=== PATIENT | male | born 1965 | race Caucasian/White ===

== ENCOUNTER 2019-02-08 09:40 | Emergency (ER) | payer MEDICAID ==
[~2019-02-08] VITALS: Ht 167.6 cm; Wt 81.6 kg
[2019-02-08 09:49] VITALS: BP_SYST 123
[2019-02-08] MEDS ORDERED: KETOROLAC TROMETHAMINE 60 MG/2 ML VIAL IM ONE (10:45)
[2019-02-08 10:55] VITALS: BP_SYST 123
== END 2019-02-08 10:55 | disposition home or self-care (01) ==
LOC: SED 09:40
DX: S90.32XA Contusion of left foot, initial encounter (principal); S90.122A Contusion of left lesser toe(s) without damage to nail, initial encounter; J44.9 Chronic obstructive pulmonary disease, unspecified; I10 Essential (primary) hypertension; W22.8XXA Striking against or struck by other objects, initial encounter; Y93.01 Activity, walking, marching and hiking; Y92.009 Unspecified place in unspecified non-institutional (private) residence as the place of occurrence of the external cause; Y99.8 Other external cause status
CPT/HCPCS: 99283

== ENCOUNTER 2019-07-15 10:06 | Emergency (ER) | payer MEDICAID ==
[~2019-07-15] VITALS: Ht 170.2 cm; Wt 83.9 kg
[2019-07-15 10:06] VITALS: BP_SYST 139
[2019-07-15] MEDS ORDERED: KETOROLAC TROMETHAMINE 60 MG/2 ML VIAL IM ONE (11:30)
[2019-07-15 11:35] LABS: BASOPHILS # (AUTO) 0.1 K/uL (0.0-0.2); BASOPHILS % (AUTO) 0.8 % (0.0-2.0); EOSINOPHILS % (AUTO) 0.5 % (0.0-4.0); HEMATOCRIT 45.5 % (36-54); HEMOGLOBIN 16.1 g/dL (14.0-18.0); LYMPHOCYTES # (AUTO) 1.7 K/uL (1.0-5.5); LYMPHOCYTES % (AUTO) 20.7 % (20.5-51.5); MEAN CORPUSCULAR HEMOGLOBIN 35 pg (27-31); MEAN CORPUSCULAR HGB CONC 35 % (32-36); MEAN CORPUSCULAR VOLUME 100 fL (79.0-98.0); MONOCYTES # (AUTO) 0.8 K/uL (0.0-1.0); MONOCYTES % (AUTO) 9.4 % (1.7-9.3); NEUTROPHILS # (AUTO) 5.5 K/uL (1.8-7.7); NEUTROPHILS % (AUTO) 68.6 % (40.0-70.0); PLATELET COUNT (AUTO) 260 K/uL (130-430); RED BLOOD CELL COUNT(AUTO) 4.54 MIL/uL (4.2-6.2); RED CELL DISTRIBUTION WIDTH 12.7 % (9.0-15.0)
[2019-07-15 11:36] LABS: BILIRUBIN,URINE NEGATIVE (NEGATIVE); CLARITY/URINE CLEAR (CLEAR); COLOR,URINE YELLOW (YELLOW); GLUCOSE,URINE NEGATIVE (NEGATIVE); KETONES,URINE TRACE (NEGATIVE); LEUKOCYTE ESTERASE ,URINE NEGATIVE (NEGATIVE); NITRITE, URINE NEGATIVE (NEGATIVE); PROTEIN URINE NEGATIVE (NEGATIVE); UROBILINOGEN,URINE 0.2 (0.2-1.0)
[2019-07-15 11:38] LABS: BLOOD, URINE TRACE (NEGATIVE)
[2019-07-15 11:48] LABS: CALCIUM 8.9 mg/dL (8.4-11.0); CREATININE 0.83 mg/dL (0.55-1.30); POTASSIUM 4.1 mmol/L (3.5-5.1)
[2019-07-15 11:53] LABS: ALBUMIN 3.8 g/dL (3.4-4.8)
[2019-07-15 12:29] LABS: BACTERIA,URINE FEW /HPF (None Seen); MUCUS,URINE None Seen /LPF (None Seen); RBC,URINE 0-3 /HPF (0-3); WBC,URINE 0-3 /HPF (0-3)
[2019-07-15 13:05] VITALS: BP_SYST 130
== END 2019-07-15 13:05 | disposition home or self-care (01) ==
LOC: SED 10:06
DX: R10.11 Right upper quadrant pain (principal); R10.31 Right lower quadrant pain; J44.9 Chronic obstructive pulmonary disease, unspecified; I10 Essential (primary) hypertension
CPT/HCPCS: 36415; 74176; 80053; 81000; 83690; 85025; 96372; 99284; J1885; 99285

== ENCOUNTER 2020-05-27 00:35 | Emergency (ER) | payer MEDICAID ==
[~2020-05-27] VITALS: Ht 162.6 cm; Wt 79.4 kg
[2020-05-27 01:00] VITALS: BP_SYST 116
[2020-05-27] MEDS ORDERED: DIPH-TET-PERTUS Vaccine 0.5 ML VIAL (ADACEL) I.M. ONE ×2 (03:15)
[2020-05-27 04:00] VITALS: BP_SYST 116
== END 2020-05-27 04:00 | disposition home or self-care (01) ==
LOC: SED 00:35
DX: S61.214A Laceration without foreign body of right ring finger without damage to nail, initial encounter (principal); J44.9 Chronic obstructive pulmonary disease, unspecified; K21.9 Gastro-esophageal reflux disease without esophagitis; I10 Essential (primary) hypertension; W26.8XXA Contact with other sharp object(s), not elsewhere classified, initial encounter; Y93.89 Activity, other specified; Y92.89 Other specified places as the place of occurrence of the external cause; Y99.8 Other external cause status
CPT/HCPCS: 90715; 99283

== ENCOUNTER 2020-12-17 01:50 | Emergency (ER) | payer MEDICAID ==
[~2020-12-17] VITALS: Ht 162.6 cm; Wt 78.0 kg
[2020-12-17 01:51] VITALS: BP_SYST 128
[2020-12-17 02:39] LABS: BASOPHILS # (AUTO) 0.1 K/uL (0.0-0.2); BASOPHILS % (AUTO) 0.7 % (0.0-2.0); EOSINOPHILS # (AUTO) 0.1 K/uL (0.0-0.4); EOSINOPHILS % (AUTO) 1.4 % (0.0-4.0); HEMATOCRIT 44.7 % (36-54); HEMOGLOBIN 15.7 g/dL (14.0-18.0); LYMPHOCYTES # (AUTO) 2.3 K/uL (1.0-5.5); LYMPHOCYTES % (AUTO) 25.8 % (20.5-51.5); MEAN CORPUSCULAR HEMOGLOBIN 34 pg (27-31); MEAN CORPUSCULAR HGB CONC 35 % (32-36); MEAN CORPUSCULAR VOLUME 97 fL (79.0-98.0); MONOCYTES % (AUTO) 10.5 % (1.7-9.3); NEUTROPHILS # (AUTO) 5.6 K/uL (1.8-7.7); NEUTROPHILS % (AUTO) 61.6 % (40.0-70.0); PLATELET COUNT (AUTO) 265 K/uL (130-430); RED BLOOD CELL COUNT(AUTO) 4.64 MIL/uL (4.2-6.2); RED CELL DISTRIBUTION WIDTH 12.6 % (9.0-15.0)
[2020-12-17 02:55] LABS: CALCIUM 8.6 mg/dL (8.4-11.0); CREATININE 0.97 mg/dL (0.55-1.30); POTASSIUM 4.1 mmol/L (3.5-5.1)
[2020-12-17 03:09] LABS: ALBUMIN 3.9 g/dL (3.4-4.8); THYROID STIMULATING HORMONE 2.34 uIu/mL (0.36-3.74); TOTAL BILIRUBIN 0.3 mg/dL (0.0-1.0)
[2020-12-17] MEDS ORDERED: NACL 0.9% 1,000 ML IV ONE (03:45)
[2020-12-17] MEDS ORDERED: KETOROLAC TROMETHAMINE 30 MG VIAL IVP ONE (03:45)
[2020-12-17 04:35] VITALS: BP_SYST 128
== END 2020-12-17 04:35 | disposition home or self-care (01) ==
LOC: SED 01:50
DX: B34.9 Viral infection, unspecified (principal); K21.9 Gastro-esophageal reflux disease without esophagitis; J44.9 Chronic obstructive pulmonary disease, unspecified; I10 Essential (primary) hypertension; Z20.822 Contact with and (suspected) exposure to COVID-19
CPT/HCPCS: 36415; 80053; 84443; 85025; 87426; 96361; 96374; 99283; J7030

== ENCOUNTER 2021-04-28 01:27 | Emergency (ER) | payer MEDICAID ==
[~2021-04-28] VITALS: Ht 167.6 cm; Wt 83.0 kg
[2021-04-28 01:35] VITALS: BP_SYST 146
--- NOTE | 2021-04-28 01:35 | NUR ---
PT TO BED 3 FOR EVALUATION. REPORT GIVEN TO MAURO CARVALHO WHO WILL ASSUME CARE.
--- NOTE | 2021-04-28 01:49 | NUR ---
DR. DENISE AT BEDSIDE FOR PATIENT EVALUATION.
--- NOTE | 2021-04-28 01:50 | NUR ---
PATIENT AAOX4 AND AMBULATORY C/O BILATERAL LEG PAIN. PATIENT STATED HE WAS WORKING OUT AND HIS RIGHT LEG GAVE OUT AND DROPPED APPROXIMATELY 130LBS TO THE LEFT LEG. VISIBALE DISCOLORATION TO THE LEFT HEAL AND ANKLE. CURRENTLY STATING 10/10 ON THE PAIN SCALE.
--- NOTE | 2021-04-28 02:17 | NUR ---
PORTABLE XRAY DONE AT BEDSIDE.
[2021-04-28] MEDS ORDERED: HYDR-3917 PO (02:35)
[2021-04-28] MEDS ORDERED: IBUP-1969 PO (02:35)
[2021-04-28] MEDS ORDERED: HYDROcodone/ACETAMIN 5-325 MG TAB (NORCO/ VICODIN) PO ONE (02:45)
[2021-04-28] MEDS ORDERED: IBUPROFEN 600 MG TABLET PO ONE (02:45)
--- NOTE | 2021-04-28 02:45 | NUR ---
SPLINT APPLIED TO LEFT LEG POSTERIORLY. MD AT BEDSIDE. PULSES WNL. PT TOLERATED WELL.
[2021-04-28] MEDS ORDERED: HYDROcodone/ACETAMIN 5-325 MG TAB (NORCO/ VICODIN) ONE (02:58)
[2021-04-28 03:07] VITALS: BP_SYST 146
--- NOTE | 2021-04-28 03:08 | NUR ---
Patient given written and verbal discharge instructions and verbalizes understanding. DR.D'AGOSTINO UGO TAYLOR discussed with patient the results and treatment provided. Patient in stable condition. ID arm band removed. Rx of IBUPROFEN,NORCO given. Patient educated on pain management and to follow up with PMD. Pain Scale 0/10 Opportunity for questions provided and answered. Medication side effect fact sheet provided.
== END 2021-04-28 03:08 | disposition home or self-care (01) ==
LOC: SED 01:27
DX: S86.812A Strain of other muscle(s) and tendon(s) at lower leg level, left leg, initial encounter (principal); I10 Essential (primary) hypertension; K21.9 Gastro-esophageal reflux disease without esophagitis; J44.9 Chronic obstructive pulmonary disease, unspecified; Z79.899 Other long term (current) drug therapy; X50.9XXA Other and unspecified overexertion or strenuous movements or postures, initial encounter; Y93.89 Activity, other specified; Y92.89 Other specified places as the place of occurrence of the external cause; Y99.8 Other external cause status
CPT/HCPCS: 73590-TC; 99283

== ENCOUNTER 2021-08-07 14:07 | Emergency (ER) | payer MEDICAID, SELFPAY ==
[~2021-08-07] VITALS: Ht 167.6 cm; Wt 81.6 kg
[~2021-08-07 14:07] MED LIST: HYDR-3917 PO; IBUP-1969 PO
[2021-08-07] MEDS ORDERED: LOPE2CAP PO (15:57)
[2021-08-07] MEDS ORDERED: ONDA4TAB5 PO (15:57)
== END 2021-08-07 18:09 | disposition home or self-care (01) ==
LOC: SED 14:07
DX: J10.1 Influenza due to other identified influenza virus with other respiratory manifestations (principal); R11.2 Nausea with vomiting, unspecified; R19.7 Diarrhea, unspecified; I10 Essential (primary) hypertension; K21.9 Gastro-esophageal reflux disease without esophagitis; J44.9 Chronic obstructive pulmonary disease, unspecified; Z79.899 Other long term (current) drug therapy; Z20.822 Contact with and (suspected) exposure to COVID-19
CPT/HCPCS: 36415; 86710; 99283

== ENCOUNTER 2023-02-01 13:06 | Emergency (ER) | payer MEDICAID ==
[~2023-02-01] VITALS: Ht 167.6 cm; Wt 90.7 kg
[~2023-02-01 13:06] MED LIST changes: +LOPE2CAP PO; +ONDA4TAB5 PO
[2023-02-01 13:37] LABS: BASOPHILS # (AUTO) 0.1 K/uL (0.0-0.2); BASOPHILS % (AUTO) 0.6 % (0.0-2.0); EOSINOPHILS # (AUTO) 0.1 K/uL (0.0-0.4); EOSINOPHILS % (AUTO) 0.9 % (0.0-4.0); HEMATOCRIT 44.9 % (36-54); HEMOGLOBIN 15.4 g/dL (14.0-18.0); LYMPHOCYTES # (AUTO) 1.9 K/uL (1.0-5.5); LYMPHOCYTES % (AUTO) 23.1 % (20.5-51.5); MEAN CORPUSCULAR HEMOGLOBIN 33 pg (27-31); MEAN CORPUSCULAR HGB CONC 34 % (32-36); MEAN CORPUSCULAR VOLUME 96 fL (79.0-98.0); MONOCYTES % (AUTO) 12.7 % (1.7-9.3); NEUTROPHILS # (AUTO) 5.1 K/uL (1.8-7.7); NEUTROPHILS % (AUTO) 62.7 % (40.0-70.0); PLATELET COUNT (AUTO) 217 K/uL (130-430); RED BLOOD CELL COUNT(AUTO) 4.66 MIL/uL (4.2-6.2); RED CELL DISTRIBUTION WIDTH 13.2 % (9.0-15.0); WHITE BLOOD COUNT (AUTO) 8.1 K/uL (4.8-10.8)
[2023-02-01 13:52] LABS: ANION GAP 13 (5-15); CALCIUM 8.7 mg/dL (8.4-11.0); CHLORIDE 102 mmol/L (98-107); CREATININE 0.79 mg/dL (0.55-1.30); GFR AFRICAN AMERICAN 129 mL/min (>90); GLUCOSE 94 mg/dL (70-99); UREA NITROGEN, BLOOD 23 mg/dL (8-21)
--- NOTE | 2023-02-01 13:55 | NUR ---
PT RECEIVED, CARE ASSUMED. PT PRESENTS SELF TO ER WITH C/O SOB. CONNECTED TO TELE MONITOR: SR 80. RESP EVEN AND UNLABORED. DR PANG AT BED SIDE
[2023-02-01 13:56] VITALS: BP_SYST 152
[2023-02-01 13:59] LABS: ALANINE AMINOTRANSFERASE 63 U/L (12-78); ALBUMIN 3.7 g/dL (3.4-4.8); ASPARTATE AMINOTRANSFERASE 25 U/L (10-37); TOTAL BILIRUBIN 0.6 mg/dL (0.0-1.0)
[2023-02-01] MEDS ORDERED: PRED20TA PO (15:12)
[2023-02-01 15:29] VITALS: BP_SYST 129
--- NOTE | 2023-02-01 15:31 | NUR ---
Patient given written and verbal discharge instructions and verbalizes understanding. ER MD discussed with patient the results and treatment provided. Patient in stable condition. ID arm band removed. Patient educated on pain management and to follow up with PMD. Pain Scale []. Opportunity for questions provided and answered. Medication side effect fact sheet provided.
== END 2023-02-01 15:31 | disposition home or self-care (01) ==
LOC: SED 13:06
DX: J44.1 Chronic obstructive pulmonary disease with (acute) exacerbation (principal); K21.9 Gastro-esophageal reflux disease without esophagitis; I10 Essential (primary) hypertension; R06.00 Dyspnea, unspecified; Z79.899 Other long term (current) drug therapy; Z20.822 Contact with and (suspected) exposure to COVID-19
CPT/HCPCS: 36415; 71045; 80053; 83605; 83880; 84484; 85025; 85379; 93005; 99285

== ENCOUNTER 2023-11-26 14:28 | Emergency (ER) | payer MEDICAID ==
[~2023-11-26] VITALS: Ht 167.6 cm; Wt 85.7 kg
[~2023-11-26 14:28] MED LIST changes: +PRED20TA PO
[2023-11-26 14:56] VITALS: BP_SYST 163; PULSE 68; RESP 16; TEMP 98; O2SAT 96
[2023-11-26] MEDS ORDERED: NAPR-1172 PO (17:21)
[2023-11-26 17:28] VITALS: BP_SYST 142; PULSE 72; RESP 18; TEMP 98; O2SAT 96
== END 2023-11-26 17:28 | disposition home or self-care (01) ==
LOC: SED 14:28
DX: M79.645 Pain in left finger(s) (principal); J44.9 Chronic obstructive pulmonary disease, unspecified; K21.9 Gastro-esophageal reflux disease without esophagitis; I10 Essential (primary) hypertension; Z79.899 Other long term (current) drug therapy
CPT/HCPCS: 73140-TC; 99283

== ENCOUNTER 2024-09-09 13:19 | Emergency (ER) | payer MEDICAID ==
[~2024-09-09] VITALS: Ht 167.6 cm; Wt 84.8 kg
[~2024-09-09 13:19] MED LIST changes: +NAPR-1172 PO
[2024-09-09 13:42] VITALS: BP_SYST 141; PULSE 94; RESP 16; TEMP 97.9; O2SAT 95
[2024-09-09] MEDS ORDERED: MORPHINE 4 MG INJ. 4 MG/ML VIAL IM ONE (14:15)
[2024-09-09] MEDS ORDERED: ONDANSETRON 4 MG ODT TAB PO ONE (14:15)
[2024-09-09 14:25] LABS: BASOPHILS # (AUTO) 0.1 K/uL (0.0-0.2); BASOPHILS % (AUTO) 0.8 % (0.0-2.0); EOSINOPHILS % (AUTO) 0.3 % (0.0-4.0); HEMATOCRIT 43.9 % (36-54); HEMOGLOBIN 15.3 g/dL (14.0-18.0); LYMPHOCYTES # (AUTO) 1.8 K/uL (1.0-5.5); LYMPHOCYTES % (AUTO) 21.6 % (20.5-51.5); MEAN CORPUSCULAR HEMOGLOBIN 33 pg (27-31); MEAN CORPUSCULAR HGB CONC 35 % (32-36); MEAN CORPUSCULAR VOLUME 96 fL (79.0-98.0); MONOCYTES # (AUTO) 0.8 K/uL (0.0-1.0); MONOCYTES % (AUTO) 9.3 % (1.7-9.3); NEUTROPHILS # (AUTO) 5.6 K/uL (1.8-7.7); PLATELET COUNT (AUTO) 235 K/uL (130-430); RED BLOOD CELL COUNT(AUTO) 4.58 MIL/uL (4.2-6.2); RED CELL DISTRIBUTION WIDTH 12.8 % (9.0-15.0); WHITE BLOOD COUNT (AUTO) 8.2 K/uL (4.8-10.8)
[2024-09-09 14:44] LABS: ALBUMIN 3.7 g/dL (3.4-4.8); BILIRUBIN,DIRECT 0.2 mg/dL (0.0-0.3); CALCIUM 8.8 mg/dL (8.4-11.0); CREATININE 0.99 mg/dL (0.55-1.30); POTASSIUM 3.3 mmol/L (3.5-5.1); TOTAL BILIRUBIN 0.7 mg/dL (0.0-1.0); TOTAL PROTEIN, SERUM 7.2 g/dL (6.4-8.3)
[2024-09-09] MEDS ORDERED: LIDO1ADH22 TP (15:10)
[2024-09-09 15:31] VITALS: BP_SYST 137; PULSE 91; RESP 16; TEMP 97.8; O2SAT 96
== END 2024-09-09 15:33 | disposition home or self-care (01) ==
LOC: SED 13:19
DX: S20.211A Contusion of right front wall of thorax, initial encounter (principal); S30.1XXA Contusion of abdominal wall, initial encounter; J44.9 Chronic obstructive pulmonary disease, unspecified; I10 Essential (primary) hypertension; K21.9 Gastro-esophageal reflux disease without esophagitis; Z79.52 Long term (current) use of systemic steroids; W01.190A Fall on same level from slipping, tripping and stumbling with subsequent striking against furniture, initial encounter; Y93.89 Activity, other specified; Y92.89 Other specified places as the place of occurrence of the external cause; Y99.8 Other external cause status
CPT/HCPCS: 36415; 80048; 80076; 83690; 85025; 99284